=== PATIENT | female | born 2000 | race Asian ===

== ENCOUNTER 2024-08-03 07:07 | Outpatient (REF) | payer OTHER, SELFPAY ==
--- NOTE | ~2024-08-03 | US_ITS ---
EXAMINATION: US PELVIS CLINICAL INFORMATION: Irregular menses, LMP 06/24/2024. COMPARISON: None available. TECHNIQUE: Ultrasound of the pelvis is performed using both transabdominal and transvaginal transducers along with Doppler. Transvaginal imaging is performed due to inadequate visualization transabdominally. Limited visualization due to bowel gas. FINDINGS: Uterus: The uterus is anteverted and measures 8.2 x 3.3 x 4.2 cm. The double wall endometrial thickness is 14 mm and the endometrium is echogenic. Adnexa: Both ovaries are visualized. There is no pelvic ascites or fluid collection. Right ovary measures 4.0 x 3.6 x 3.7 cm, volume 27.37 mL. Right ovarian 1.5 x 1.8 x 1.7 cm cyst is likely simple, but difficult to characterize due to limited visualization. Left ovary measures 2.2 x 1.8 x 2.6 cm and is unremarkable. US/US pelvic and transvaginal IMPRESSION: 1. Endometrial thickness is 14 mm. 2. Right ovarian 1.8 cm cyst is likely simple, but difficult to characterize due to limited visualization. Recommend follow-up ultrasound in 6-8 weeks. Electronically signed by: Rubi Vaughan MD 08/03/2024 12:12 PM [facility]
== END 2024-08-03 07:08 | disposition home or self-care (01) ==
LOC: HO.UMASIMG 07:07
PROVIDERS: Visit Provider Registered Nurse
DX: N92.6 Irregular menstruation, unspecified (principal)
CPT/HCPCS: 76830; 76856

== ENCOUNTER 2024-09-21 06:18 | Outpatient (REF) | payer OTHER, SELFPAY ==
--- NOTE | ~2024-09-21 | US_ITS ---
EXAMINATION: US PELVIS CLINICAL INFORMATION: Follow-up right ovarian cyst. COMPARISON: Ultrasound pelvis and transvaginal 08/03/2024. TECHNIQUE: Ultrasound of the pelvis is performed using both transabdominal and transvaginal transducers along with Doppler. Transvaginal imaging is performed due to inadequate visualization transabdominally. FINDINGS: Uterus: The uterus is anteverted , anteflexed and measures 7.1 x 4.0 x 5.1 cm. The double wall endometrial thickness is 10 mm. The uterus is smooth in contour and has normal myometrial echogenicity. No visible fibroid. Adnexa: Both ovaries are visualized transabdominally. There is normal color flow to the adnexa. There is no ovarian torsion. There is no pelvic ascites or fluid collection. Right ovary measures 4.1 x 1.9 x 1.9 cm. Volume 7.6 mL. Previously it measured 4.0 x 3.6 x 3.7 cm in volume 27.4 mL. Previously visualized 1.8 cm right ovarian cyst is not seen at this time Left ovary measures 2.4 x 1.6 x 2.4 cm. Volume 5.0 mL. There is no free fluid in the cul-de-sac. US/US pelvic and transvaginal IMPRESSION: Unremarkable uterus and ovaries. Previously visualized 1.8 cm right ovary cyst is not visualized at this time and likely resolved. Electronically signed by: Francois Purvis MD 09/21/2024 09:17 AM [facility]
== END 2024-09-21 06:19 | disposition home or self-care (01) ==
LOC: HO.UMASIMG 06:18
PROVIDERS: Visit Provider Registered Nurse
DX: N83.291 Other ovarian cyst, right side (principal)
CPT/HCPCS: 76830; 76856

== ENCOUNTER → 2024-09-21 08:30 | Outpatient (BNV) | payer OTHER, SELFPAY | PROVIDERS: Visit Provider Radiology Diagnostic Radiology | DX: N83.291 Other ovarian cyst, right side (principal) | CPT/HCPCS: 76830; 76856 ==